=== PATIENT | male | born 1980 | race Hispanic/Latino ===

== ENCOUNTER 2024-04-02 22:56 | Emergency (ER) | payer BC | END 2024-04-03 05:00 | disposition home or self-care (01) | LOC: JD.ED 22:56 | DX: M54.6 Pain in thoracic spine (principal); X50.0XXA Overexertion from strenuous movement or load, initial encounter; Y99.0 Civilian activity done for income or pay | CPT/HCPCS: 71046; 71046-26; 99283 ==

== ENCOUNTER 2024-09-14 16:01 | Emergency (ER) | payer BC ==
[2024-09-14] MEDS: Ketorolac 30 MG/ML SDV IM ONE (17:11)
[2024-09-14] MEDS: Losartan 50 MG Tab PO ONE (19:31)
== END 2024-09-14 19:34 | disposition home or self-care (01) ==
LOC: JD.ED 16:01
DX: S83.92XA Sprain of unspecified site of left knee, initial encounter (principal); I10 Essential (primary) hypertension; F17.210 Nicotine dependence, cigarettes, uncomplicated; Z90.49 Acquired absence of other specified parts of digestive tract; Z79.899 Other long term (current) drug therapy; X50.9XXA Other and unspecified overexertion or strenuous movements or postures, initial encounter
CPT/HCPCS: 73562; 96372; 99283; A9270; J1885